=== PATIENT | female | born 1960 | race Caucasian/White ===

== ENCOUNTER 2017-03-20 15:40 | Outpatient (CLI) | payer OTHER ==
--- NOTE | 2017-03-24 14:16 | MRI ---
MRI RIGHT SHOULDER WITHOUT CONTRAST: Date: 03/20/17 HISTORY: S49.91XD, injury of right shoulder subsequent encounter. COMPARISON: Shoulder radiographs dated 01/15/17. FINDINGS: Biceps Tendon: Extensive intraarticular tendinosis. There is mild thinning of the extraarticular biceps tendon. Glenoid Labrum: There is tear in the superior labrum with free edge fraying. The anterior inferior labrum evaluation is limited due to extensive motion. Rotator Cuff: There is a focal full thickness tear of the anterior 9 mm supraspinatus tendon. There is extensive in terstitial and bursal surface tearing of the footplate of the posterior fibers of supraspinatus tendo n, as well as of the infraspinatus tendon. There is partial deep undersurface tearing of the subscapu monica. Muscles: The muscle bulk is normal. There is mild edema of the myotendinous junction of the supraspinatus. Bones: Moderate degenerative disease of the acromioclavicular joint. Type I acromion. Subchondral cyst of th e lesser tuberosity. Normal glenoid version. IMPRESSION: 1. Focal full thickness tear of the anterior 9 mm fibers of supraspinatus tendon at the footplate wi th fibers retracted approximately 5 mm. 2. Extensive intraarticular tendinosis biceps tendon. 3. Mild degenerative tearing of the superior labrum. 4. There is what appears to be anterior inferior glenoid osteophyte formation, as well as chondral f raying, although this evaluation is limited due to motion. POS: TPC
== END 2017-03-20 15:41 | disposition home or self-care (01) ==
LOC: TBSIIMAG 15:40
PROVIDERS: ATTEND Family Medicine
DX: S49.91XD Unspecified injury of right shoulder and upper arm, subsequent encounter (principal); M75.101 Unspecified rotator cuff tear or rupture of right shoulder, not specified as traumatic; M75.21 Bicipital tendinitis, right shoulder; S73.192A Other sprain of left hip, initial encounter

== ENCOUNTER 2017-04-22 08:31 | Outpatient (CLI) | payer OTHER ==
[2017-04-22 09:34] LABS: Hemoglobin 14.6 g/dL (12.0-16.0); Mean Corpuscular HGB CONC 31.8 g/dL (32.0-36.0); Mean Corpuscular Hemoglobin 28.5 pg (27.0-31.0); Mean Corpuscular Volume 89.4 fl (81.0-99.0); Mean Platelet Volume 8.3 fL (7.4-10.4); Platelet Count 235 thou/uL (130-400); RBC Distribution Width 13.2 % (11.5-14.5); Red Blood Cell (RBC) Count 5.15 mill/uL (4.20-5.40); White Blood Cell (WBC) Count 9.2 thou/uL (4.8-10.8)
[2017-04-22 09:56] LABS: Anion Gap 10 mmol/L (10-20); BUN (Urea Nitrogen) 23 mg/dL (9.8-20.1); Calc. Creatinine Clearance 0 mL/min (70-130); Calcium 9.6 mg/dL (7.8-10.44); Carbon Dioxide 33 mmol/L (22-29); Chloride 99 mmol/L (98-107); Estimated GFR-MDRD 77; Glucose 100 mg/dL (70-105); Potassium 4.3 mmol/L (3.5-5.1); Sodium 138 mmol/L (136-145)
--- NOTE | 2017-04-23 17:40 | EKG ---
Test Reason : Blood Pressure : / mmHG Vent. Rate : 066 BPM Atrial Rate : 066 BPM P-R Int : 154 ms QRS Dur : 084 ms QT Int : 416 ms P-R-T Axes : 043 017 006 degrees QTc Int : 436 ms Normal sinus rhythm Voltage criteria for left ventricular hypertrophy Inferior infarct , age undetermined Abnormal ECG When compared with ECG of 25-DEC-2015 13:18, Inferior infarct is now Present Confirmed by DR. Tawny RAMOS ([id number]) on 04/23/2017 5:40:36 PM Referred By: DESIREE Confirmed By:DR. Tawny RAMOS
== END 2017-04-22 08:32 | disposition home or self-care (01) ==
LOC: LABBT 08:31
PROVIDERS: ATTEND Orthopaedic Surgery
DX: Z01.818 Encounter for other preprocedural examination (principal); M75.101 Unspecified rotator cuff tear or rupture of right shoulder, not specified as traumatic
CPT/HCPCS: 80048; 85027; 93005; 93010

== ENCOUNTER 2017-04-23 05:58 | Day surgery (SDC) | payer OTHER ==
[2017-04-22 08:47] VITALS: BMI 42.5
[2017-04-23] MEDS ORDERED: Fentanyl 250 MCG/5 ML VIAL ONE ×2 (06:29→06:33)
[2017-04-23] MEDS ORDERED: Midazolam HCl 2 mg/2 ml Vial ONE (06:33)
[2017-04-23] MEDS ORDERED: Bupivacaine/Epinephrine 0.25% 30 ML VIAL ONE (06:56)
[2017-04-23] MEDS ORDERED: CEFAZOLIN/Water 2 GM/20 ML SYRINGE ONE (06:58)
[2017-04-23] MEDS ORDERED: HYDROcodone/Acetaminophen 10/325 mg Tablet PO PRN ×2 (07:23)
[2017-04-23] MEDS ORDERED: Ropivacaine 0.2% 550 ML 550 ML NERVE BLCK SCH (07:23)
[2017-04-23] MEDS ORDERED: Promethazine HCl 25 MG/ML VIAL IM PRN (07:23)
[2017-04-23] MEDS ORDERED: Bupivacaine 0.5% 50 ML in Sodium Chloride 0.9% 50 ML NERVE BLCK SCH (07:23)
[2017-04-23] MEDS ORDERED: Ondansetron HCl/PF 4 MG/2 ML Vial IVP PRN (07:23)
[2017-04-23] MEDS ORDERED: Ketorolac Tromethamine 30 MG/ML VIAL IVP PRN (07:23)
[2017-04-23] MEDS ORDERED: traMADol HCl 50 MG TAB PO PRN ×2 (07:23)
[2017-04-23] MEDS ORDERED: Zolpidem Tartrate 5 MG TAB PO PRN (07:23)
[2017-04-23] MEDS ORDERED: Fentanyl 100 MCG/2 ML VIAL IV PRN (07:24)
[2017-04-23] MEDS ORDERED: Promethazine HCl 25 MG/ML VIAL ONE (09:53)
[2017-04-23] MEDS ORDERED: Ropivacaine 0.5% HCl/PF (150 MG/30 ML VIAL) ONE (15:09)
[2017-04-23] MEDS ORDERED: Ropivacaine 0.2% HCl/PF (40 MG/20 ML VIAL) ONE (15:09)
[2017-04-23] MEDS ORDERED: Propofol 200 MG/20 ML VIAL ONE (15:49)
[2017-04-23] MEDS ORDERED: Dexamethasone 20 MG/5 ML VIAL ONE (15:49)
[2017-04-23] MEDS ORDERED: Glycopyrrolate 0.2 MG/ML 5 ML SYRINGE ONE (15:49)
[2017-04-23] MEDS ORDERED: ePHEDrine/0.9% NaCl/PF SYRINGE 50 mg/10 ml ONE (15:49)
[2017-04-23] MEDS ORDERED: PHENYLEPHRINE-NS 100 MCG/ML 10 ML SYRINGE ONE (15:49)
[2017-04-23] MEDS ORDERED: Ondansetron HCl/PF 4 MG/2 ML Vial ONE (15:49)
[2017-04-23] MEDS ORDERED: Lidocaine 1% PF 5 ML VIAL ONE (15:49)
--- NOTE | 2017-04-23 16:53 | OP ---
DATE OF PROCEDURE: 04/23/2017 PREOPERATIVE DIAGNOSES: Right full thickness supraspinatus tear with biceps tendinopathy, acromiocla vicular joint, degenerative joint arthritis, possible impingement. POSTOPERATIVE DIAGNOSES: 1. Right high grade supraspinatus leading edge tear with impingement. 2. Biceps tendinosis. PROCEDURES PERFORMED: 1. Right rotator cuff repair. 2. Subacromial decompression. STAFF: Óscar Villarreal M.D. SUPPLY PLANNER: None. ANESTHESIA: Dr. Dickey. Patient received a general endotracheal intubation with interscalene block. ESTIMATED BLOOD LOSS: 30 mL. TOURNIQUET TIME: None. IMPLANTS: Arthrex 5.5 corkscrew, Arthrex 4.75 SwiveLock. ANTIBIOTICS: Two grams. COMPLICATIONS: None. HISTORY OF PRESENT ILLNESS: Ms. Mcgrath is a pleasant 56-year-old female who presented to [facility] shoulder over December, she has been treated conservatively. 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 She had an MRI showing there w as a full thickness tear at the leading edge of her supraspinatus tendon with biceps tendinosis, poss ible of the leading edge of the subscapularis. The patient had AC joint degenerative changes w ith type 2 acromion. I discussed with patient the risks and benefits of arthroscopic evaluation, rot ator cuff repair with possible biceps tenotomy, subacromial decompression include pain, scar, bleedin g, infection, damage to vital structures, decreased range of strength, continued pain despite surgica l intervention. The patient understood the risks and benefits and elected to proceed. PROCEDURE IN DETAIL: Time out was performed designating the patient's right upper extremity as the o perative site based on sight, consents, and markings. After completion of timeout, the patient's rig ht extremity was prepped and draped in a sterile fashion. The patient had a posterior working portal and anterior working portal placed to visualize intraarticularly. She has some degenerative labral changes, which were debrided. Biceps that was intact. It is little erythema, I pulled it and a jorge le bit of irritation on the undersurface when I pulled it in the joint, but there is no full thicknes s fraying or damage, therefore I left it intact, so the undersurface tearing of the leading edge of s upraspinatus tear intraarticularly, no articular defects. I then moved subacromially. The patient h ad very limited space for manipulation given her body habitus, size of shoulder, subluxation anterior ly as well as she had a slight spurring. I burred the subacromial decompression for better visualiza tion and for space and only took about 2 mm of bone to help with my visualization. We then CA ligament, exposed the shoulder. When I tried to visualize the shoulder, there was a leading edge tea r that had a small poke hole on the footprint laterally. I do not see a big footprint, but was able to fall into what was a defect. I shaved and created a footprint to place my anchor. I then placed a 5.5 corkscrew. I placed a lateral working portal and an anterior lateral working portal for placin g the anchor, position of within the humerus. I then anchored into place, passed four sutures, tied two horizontal mattress sutures and then placed a second double row laterally to help to pull the ten don down, but it affects the tendon. I had overall good alignment. I liked the good position of the shoulder. She had reposition of the tendon down and closure where the tear was. We then washed, cl osed, put on the sutures and the patient will follow up with me in 2 weeks. She will began no elbow, wrist and hand motion until that time. She will go to home with p.o. narcotics and her block for pa in control, sleep upright, remove the block if she has any shortness of breath.
== END 2017-04-23 15:15 | disposition home or self-care (01) ==
LOC: SDC 05:58
PROVIDERS: ATTEND Orthopaedic Surgery
DX: M75.101 Unspecified rotator cuff tear or rupture of right shoulder, not specified as traumatic (principal); M75.21 Bicipital tendinitis, right shoulder; M75.41 Impingement syndrome of right shoulder; I10 Essential (primary) hypertension; M19.90 Unspecified osteoarthritis, unspecified site; F40.240 Claustrophobia; K21.9 Gastro-esophageal reflux disease without esophagitis; E66.9 Obesity, unspecified; Z68.41 Body mass index [BMI] 40.0-44.9, adult; Z79.899 Other long term (current) drug therapy; Z96.653 Presence of artificial knee joint, bilateral
CPT/HCPCS: 96374; A4306; C1713; J1100; J2001; J2250; J2405; J2550; J2704; J2795; J3010

== ENCOUNTER 2017-08-07 15:31 | Outpatient (CLI) | payer OTHER | END 2017-08-07 15:32 | disposition home or self-care (01) | LOC: BICMAMMO 15:31 | PROVIDERS: ATTEND Family Medicine | DX: Z12.31 Encounter for screening mammogram for malignant neoplasm of breast (principal); Z80.3 Family history of malignant neoplasm of breast | CPT/HCPCS: 77063; 77067 ==

== ENCOUNTER 2017-08-25 08:39 | Outpatient (CLI) | payer OTHER ==
[2017-08-25] MEDS ORDERED: Gadobenate Dimeglumine 529 MG/1 ML (20ML VIAL) ONE (11:21)
--- NOTE | 2017-08-25 12:44 | MRI ---
MRI NECK AND FACE WITH AND WITHOUT CONTRAST: CLINICAL HISTORY: Sebaceous cyst. Palpable posterior mass. The patient has undergone recent aspiration by her physici an. FINDINGS: There is a palpable marker overlying the posterior right neck, underlying this region. The subcutane ous fat reveals no evidence of mass or cyst. The underlying posterior paraspinous muscle signal is a ppropriate in intensity and volume. Patient motion during the exam does limit the evaluation. There is degenerative change and kyphosis involving the imaged cervical spine and the upper thoracic spine . There is mucosal apposition of the oropharynx, incompletely evaluated on the basis of this exam. IMPRESSION: No evidence of a dermal based mass. No significant localizable soft tissue edema or cyst within the region of palpable concern. POS: FRANCISCA
== END 2017-08-25 08:40 | disposition home or self-care (01) ==
LOC: TBSIIMAG 08:39
PROVIDERS: ATTEND Surgery
DX: L72.3 Sebaceous cyst (principal)
CPT/HCPCS: 70543; A9579

== ENCOUNTER 2018-03-26 15:39 | Outpatient (CLI) | payer OTHER ==
--- NOTE | 2018-03-26 16:18 | RAD ---
TWO VIEWS CHEST: 03/26/18 PROVIDED CLINICAL HISTORY: Bronchitis. FINDINGS: No comparisons. The cardiac silhouette appears enlarged. Lungs are hypoinflated, accentuating pulmonary bronchovascul ar markings. No focal consolidation, pleural fluid or pneumothorax apparent. IMPRESSION: Cardiomegaly without definite evidence for acute cardiopulmonary process. POS: FRANCISCA
== END 2018-03-26 15:40 | disposition home or self-care (01) ==
LOC: BICRAD 15:39
PROVIDERS: ATTEND Physician Assistant
DX: J40 Bronchitis, not specified as acute or chronic (principal); I51.7 Cardiomegaly
CPT/HCPCS: 71046

== ENCOUNTER 2018-04-06 10:15 | Outpatient (CLI) | payer OTHER ==
--- NOTE | 2018-04-09 12:58 | PFT ---
PATIENT HISTORY: HEIGHT: 63 IN WEIGHT: 248 LBS SMOKER: NEVER HOW LONG: NA PACKS PER DAY PRODUCTIVE COUGH: LUNG DISEASE: PHYSICIAN INTERPRETATION FINAL REPORT: Patient had good effort and cooperation. PFT data: FVC 1.73 (53%), FEV1 1.55 (62%) FEV1/FVC 0.90 TET 6.67 seconds. RV 0.89 (49%), TLC 4.04 (80%). There is a symmetric reduction the both the FEV1 and the FVC. The ratio is suggestive of a restrictive profile. There is a significant improvement following administration of a bronchodilator Lung volumes including RV and TLC are reduced consistent with the restrictive process. IMPRESSION: Overall, These pulmonary function studies are most consistent with a moderate restrictive lung disease, diffusion capacity would help to interpret these data. Body habitus is likely contributing, at least in part, to these findings. That being said, clinical and radiographic correlation for interstitial process or chest wall disorder should be considered. I have no priors for comparison. Blocker Automatic: GILBERT Quality Control Expert: GILBERT MENENDEZ
== END 2018-04-06 10:16 | disposition home or self-care (01) ==
LOC: CP 10:15
PROVIDERS: ATTEND Physician Assistant
DX: J40 Bronchitis, not specified as acute or chronic (principal)
CPT/HCPCS: 94060; 94727

== ENCOUNTER 2018-11-11 09:00 | Outpatient (CLI) | payer OTHER ==
--- NOTE | 2018-11-11 11:07 | MMO ---
Bilateral MAMMO Bilat Screen [facility]. CLINICAL HISTORY: Patient is 58 years old and is seen for screening. The patient has the following family history of breast cancer: sister, at age 52. The patient has no personal history of cancer. VIEWS: The views performed were: bilateral craniocaudal; bilateral craniocaudal with tomosynthesis; bilateral mediolateral oblique; and bilateral mediolateral oblique with tomosynthesis. FILMS COMPARED: The present examination has been compared to prior imaging studies performed at [facility] on 04/17/2006, 11/04/2007 and 08/07/2017. This study has been interpreted with the assistance of computer-aided detection. MAMMOGRAM FINDINGS: There are scattered fibroglandular densities. There are stable benign appearing calcifications seen in both breasts. There are no suspicious masses, suspicious calcifications, or new areas of architectural distortion. IMPRESSION: THERE IS NO MAMMOGRAPHIC EVIDENCE OF MALIGNANCY. A ROUTINE FOLLOW-UP MAMMOGRAM IN 1 YEAR IS RECOMMENDED. THE RESULTS OF THIS EXAM WERE SENT TO THE PATIENT. ACR BI-RADS Category 2 - Benign finding MAMMOGRAPHY NOTE: 1. A negative mammogram report should not delay a biopsy if a dominant of clinically suspicious mass is present. 2. Approximately 10% to 15% of breast cancers are not detected by mammography. 3. Adenosis and dense breasts may obscure an underlying neoplasm. Reported by: JONO TERRELL MD Electonically Signed: [id number]
== END 2018-11-11 09:01 | disposition home or self-care (01) ==
LOC: BICMAMMO 09:00
PROVIDERS: ATTEND Family Medicine
DX: Z12.31 Encounter for screening mammogram for malignant neoplasm of breast (principal); Z80.3 Family history of malignant neoplasm of breast
CPT/HCPCS: 77063; 77067

== ENCOUNTER 2020-01-06 15:37 | Outpatient (CLI) | payer OTHER ==
--- NOTE | 2020-01-06 16:17 | MMO ---
Bilateral MAMMO Bilat Screen [facility]. CLINICAL HISTORY: Patient is 59 years old and is seen for screening. The patient has the following family history of breast cancer: sister, at age 52. The patient has no personal history of cancer. VIEWS: The views performed were: bilateral mediolateral oblique with tomosynthesis; bilateral craniocaudal with tomosynthesis; left mediolateral oblique; and left craniocaudal. FILMS COMPARED: The present examination has been compared to prior imaging studies performed at [facility] on 04/17/2006, 11/04/2007, 08/07/2017 and 11/11/2018. This study has been interpreted with the assistance of computer-aided detection. MAMMOGRAM FINDINGS: There are scattered fibroglandular densities. There are benign appearing calcifications seen in both breasts. There are no suspicious masses, suspicious calcifications, or new areas of architectural distortion. IMPRESSION: THERE IS NO MAMMOGRAPHIC EVIDENCE OF MALIGNANCY. A ROUTINE FOLLOW-UP MAMMOGRAM IN 1 YEAR IS RECOMMENDED. THE RESULTS OF THIS EXAM WERE SENT TO THE PATIENT. ACR BI-RADS Category 2 - Benign finding MAMMOGRAPHY NOTE: 1. A negative mammogram report should not delay a biopsy if a dominant of clinically suspicious mass is present. 2. Approximately 10% to 15% of breast cancers are not detected by mammography. 3. Adenosis and dense breasts may obscure an underlying neoplasm. Reported by: WILBUR JEAN-BAPTISTE MD Electonically Signed: [id number]
== END 2020-01-06 15:38 | disposition home or self-care (01) ==
LOC: BICMAMMO 15:37
PROVIDERS: ATTEND Family Medicine
DX: Z12.31 Encounter for screening mammogram for malignant neoplasm of breast (principal); Z80.3 Family history of malignant neoplasm of breast
CPT/HCPCS: 77063; 77067

== ENCOUNTER 2020-10-26 13:50 | Outpatient (CLI) | payer OTHER | END 2020-10-26 13:51 | disposition home or self-care (01) | LOC: ULT 13:50 | PROVIDERS: ATTEND Internal Medicine Nephrology | DX: I13.10 Hypertensive heart and chronic kidney disease without heart failure, with stage 1 through stage 4 chronic kidney disease, or unspecified chronic kidney disease (principal); E66.9 Obesity, unspecified; M19.90 Unspecified osteoarthritis, unspecified site; N18.1 Chronic kidney disease, stage 1; N39.0 Urinary tract infection, site not specified; K21.9 Gastro-esophageal reflux disease without esophagitis; E78.5 Hyperlipidemia, unspecified; I25.10 Atherosclerotic heart disease of native coronary artery without angina pectoris; R60.9 Edema, unspecified | CPT/HCPCS: 76770; 93975 ==

== ENCOUNTER 2021-01-28 15:13 | Outpatient (CLI) | payer OTHER | END 2021-01-28 15:14 | disposition home or self-care (01) | LOC: BICMAMMO 15:13 | PROVIDERS: ATTEND Family Medicine | DX: Z12.31 Encounter for screening mammogram for malignant neoplasm of breast (principal); Z80.3 Family history of malignant neoplasm of breast | CPT/HCPCS: 77063; 77067 ==

== ENCOUNTER 2022-09-29 10:57 | Outpatient (CLI) | payer OTHER | END 2022-09-29 10:58 | disposition home or self-care (01) | LOC: BICMAMMO 10:57 | PROVIDERS: ATTEND Family Medicine | DX: Z12.31 Encounter for screening mammogram for malignant neoplasm of breast (principal); Z80.3 Family history of malignant neoplasm of breast; Z91.89 Other specified personal risk factors, not elsewhere classified | CPT/HCPCS: 77063; 77067 ==

== ENCOUNTER 2023-08-25 21:56 | Emergency (ER) | payer OTHER ==
[2023-08-26 00:25] LABS: #Basophils 0.03 10x3/uL (0.0-0.2); %Basophils 0.3 % (0.0-1.0); %Eosinophils 1.7 % (0.0-10.0); %Lymphocytes 23.8 % (21.0-51.0); %Monocytes 10.3 % (0.0-10.0); %Neutrophils 63.5 % (42.0-75.0); Hematocrit 48.5 % (36.0-47.0); Hemoglobin 15.7 g/dL (12.0-16.0); Mean Corpuscular HGB CONC 32.4 g/dL (32.0-36.0); Mean Corpuscular Hemoglobin 28.7 pg (27.0-31.0); Mean Corpuscular Volume 88.7 fL (78.0-98.0); Platelet Count 251 10x3/uL (130-400); RBC Distribution Width 14.6 % (11.5-14.5); Red Blood Cell (RBC) Count 5.47 mill/uL (4.20-5.40)
[2023-08-26 00:47] LABS: ALT (SGPT) 87 U/L (8-55); AST (SGOT) 73 U/L (5-34); Albumin 3.5 g/dL (3.4-4.8); Alkaline Phosphatase 87 U/L (40-110); Anion Gap 14 mmol/L (10-20); BUN (Urea Nitrogen) 32 mg/dL (9.8-20.1); Bilirubin, Total 0.5 mg/dL (0.2-1.2); Calc. Creatinine Clearance 0 mL/min (70-130); Carbon Dioxide 28 mmol/L (23-31); Chloride 103 mmol/L (98-107); Estimated GFR 64; Globulin 4.2 g/dL (2.4-3.5); Glucose 95 mg/dL (80-115); Lipase 74 U/L (8-78); Magnesium 2.1 mg/dL (1.6-2.6); Potassium 4.2 mmol/L (3.5-5.1); Protein, Total 7.7 g/dL (5.8-8.1); Sodium 141 mmol/L (136-145)
[2023-08-26 00:48] LABS: Troponin I Less than 0.010 ng/mL (< 0.028)
[2023-08-26] MEDS ORDERED: Iopamidol-370 76% 500 ML MDV (1 ML CHARGE) ONE (13:22)
== END 2023-08-26 04:25 | disposition home or self-care (01) ==
LOC: ERS 21:56
DX: R06.02 Shortness of breath (principal)
CPT/HCPCS: 36415; 71045; 71275; 83690; 83735; 83880; 84484; 85379; 93005; Q9967

== ENCOUNTER 2024-01-20 13:07 | Outpatient (CLI) | payer OTHER | END 2024-01-20 13:08 | disposition home or self-care (01) | LOC: RAD 13:07 | PROVIDERS: ATTEND Internal Medicine | DX: R06.00 Dyspnea, unspecified (principal) | CPT/HCPCS: 71046 ==

== ENCOUNTER 2024-10-20 07:26 | Outpatient (CLI) | payer MEDICARE ==
[2024-10-20 08:41] LABS: Estimated GFR - POC 71.0
[2024-10-20] MEDS ORDERED: Iopamidol-370 76% 500 ML MDV (1 ML CHARGE) ONE (12:45)
== END 2024-10-20 07:27 | disposition home or self-care (01) ==
LOC: CT 07:26
PROVIDERS: ATTEND Family Medicine
DX: D35.01 Benign neoplasm of right adrenal gland (principal)
CPT/HCPCS: 36415; 74170; 82565; Q9967